=== PATIENT | male | born 1990 | race Caucasian/White ===

== ENCOUNTER → 2017-04-04 | Day surgery (SDC) | payer OTHER ==
[~2017-04-04] VITALS: Ht 172.7 cm; Wt 67.2 kg
[~2017-04-04] MED LIST: ALEVE220 MG PO; CANASA1000 MG R; KOMBUCHA PO; THERAGRAN-M1 TAB PO
== END ==
LOC: GPOC 03-31 13:00 → GEND 05:40 → GPOC 13:00
PROC: 0DBN8ZX Excision of Sigmoid Colon, Via Natural or Artificial Opening Endoscopic, Diagnostic (ICD-10-PCS; principal; 2017-04-04)
PROC: 0DBP8ZX Excision of Rectum, Via Natural or Artificial Opening Endoscopic, Diagnostic (ICD-10-PCS; 2017-04-04)
DX: K51.30 Ulcerative (chronic) rectosigmoiditis without complications (principal); F41.9 Anxiety disorder, unspecified; F32.9 Major depressive disorder, single episode, unspecified; Z79.899 Other long term (current) drug therapy; Z98.890 Other specified postprocedural states
CPT/HCPCS: J2001; J7030